=== PATIENT | male | born 1950 | race Caucasian/White ===

== ENCOUNTER → 2020-02-14 11:17 | Outpatient (BNVA) | payer OTHER, SELFPAY | PROVIDERS: Family Provider Nurse Practitioner; PCP Nurse Practitioner; Referring Provider Nurse Practitioner; Visit Provider Specialist | DX: G35 Multiple sclerosis (principal); F43.10 Post-traumatic stress disorder, unspecified; R56.9 Unspecified convulsions | CPT/HCPCS: 99204 ==

== ENCOUNTER 2020-12-25 07:41 | Outpatient (CLI) | payer OTHER, SELFPAY ==
--- NOTE | 2020-12-25 08:00 | MR_ITS ---
WS: [id number] MRI BRAIN WITH AND WITHOUT CONTRAST HISTORY: RULE OUT MS COMPARISON: CT 07/17/2018 TECHNIQUE: Multiplanar imaging performed through the brain with MultiHance 20 ml's IV. No acute infarct. No acute hemorrhage. There is extensive T2 and FLAIR signal within a pericallosal a nd callosal septal distribution bilaterally. Linear and ovoid signal abnormalities. Additional subcor tical white matter lesions in the frontal, temporal and parietal regions. Visualized brainstem and up per cervical spine are negative. No susceptibility artifacts or prior lacunar infarcts. Ventricles and extra-axial spaces are normal. Clivus and pituitary gland are normal. Visualized posterior fossa and brainstem are also normal. Postcontrast images are negative for masses or vascular malformations. Dural venous sinuses are normal. Paranasal sinuses: Well aerated with no significant disease. Mastoid air cells: Normal. Calvarium and scalp: Normal. MR/MR head wo/w con [id number] IMPRESSION: 1. No enhancing masses. 2. Moderate burden of T2 and FLAIR signal abnormalities in a pericallosal and callosal septal distribution. Typical distribution for demyelination such as mu ltiple sclerosis. None of these lesions enhance. 3. Moderate additional subcortical hyperintensities. These also could be relat ed to demyelination or chronic ischemic disease. 4. Mild atrophy.
== END 2020-12-25 07:42 | disposition home or self-care (01) ==
PROVIDERS: PCP Nurse Practitioner; Visit Provider Nurse Practitioner
DX: G35 Multiple sclerosis (principal); G31.9 Degenerative disease of nervous system, unspecified
CPT/HCPCS: 70553; A9579

== ENCOUNTER → 2021-01-08 10:14 | Outpatient (BNVA) | payer OTHER, SELFPAY | PROVIDERS: PCP Nurse Practitioner; Visit Provider Internal Medicine Cardiovascular Disease | DX: Z01.818 Encounter for other preprocedural examination (principal); Z20.822 Contact with and (suspected) exposure to COVID-19 | CPT/HCPCS: 80048; 85025; 85610; 87635 ==

== ENCOUNTER 2021-01-12 06:04 | Outpatient (CLI) | payer OTHER, SELFPAY ==
[2021-01-12 06:25] VITALS: BP 130/88; PULSE 84; RESP 18; TEMP 36.8; O2SAT 94; BMI 26.9
--- NOTE | 2021-01-12 07:24 | W.PM.OPSUD ---
Surgery/Procedure H&P Update DATE OF PROCEDURE: January 12, 2021 DATE H&P PERFORMED: 12/14/20 PLANNED PROCEDURE: Operation Date: 01/12/21 07:00 Proposed Procedures p Loop Recorder Insertion(Not Applicable) - Hawa Lin MD Nathaniel is here for elective ILR implant for episodes of unexplained syncope. No changes to H&P since his last visit.
--- NOTE | 2021-01-12 07:45 | P.PCN_ITS ---
Procedure Note: Date of procedure: 01/12/21 Pre-procedure diagnosis: Unexplained Syncope Post-procedure diagnosis: same Procedure: IMPLANTABLE ARTIFICIAL FLOWERS STARCHER (REVEAL LINQ) INSERTION NOTE: Location: [facility] Referring provider: Dr. Lin Indication: Syncope and bradycardia Brief history: 70 yo man with PMHx of multiple sclerosis, Lyme's disease in 01/2018 and history of hepatitis C and paroxysmal atrial fibrillation on digoxin and xarelto. He has had two episodes of syncope one in 03/2020 and another one in 07/2020. The one in March was preceded by symptom of dizziness tiredness weakness with witnessed episode of passing out without any seizure. Blood pressure at the time was in 80s and heart rate in 40s. He felt well prior to the episode. He did not go to the ER even though he felt like he was dying but used oxygen at home. He felt bad for a day or 2 but subsequently recovered. With the second episode in July, he was walking out in the yard and next thing he remembers that he was on the ground with right flank and mid back hurting. He called his and then with the help of walker he was able to get back in the house. He felt weak. He did not go to the ER but [facility]. X ray revealed that he had fractured at least one ribs. No MS or seizures. These episodes were different. I saw him last month and after discussion decision was made to place a ILR. Procedure: Patient was identified and procedure was explained to the patient in detail. Risks and benefits of the procedure were discussed with the patient. Informed consent was obtained. Patient was prepped and draped with STERILE drapes with all aseptic precautions. The patient was anesthetized with 8 mL of lidocaine. A small donn in the skin was made and REVEAL LINQ LNQ 11, serial number [id number] was implanted. Blood loss was less than 10 mL. The skin was secured with Steri-Strips and Tegaderm was applied on top. R-wave amplitude of 0.10 mV was detected. Sensitivity set at 0.035 mV with tachycardia set at 150 bpm and bradycardia detection set at 30 bpm. Programmed to detect longest A. fib. Patient tolerated the procedure pretty well. Op report anesthesia: Local Performing Provider: Hawa Lin Estimated blood loss (mL): 10 Complications: None Condition: stable Disposition: observation Coding Level of Care Code Acute Weatherization Director for g Fwd
[2021-01-12 08:18] VITALS: BP 126/88; PULSE 66; RESP 18; TEMP 36.7; O2SAT 94
--- NOTE | 2021-01-12 08:23 | PC.NURSE ---
Steri strips applied after pressure was held at the procedure site. No bleeding or swelling noted. The patient tolerated the procedure well.
== END 2021-01-12 08:40 | disposition home or self-care (01) ==
PROVIDERS: PCP Nurse Practitioner; Visit Provider Internal Medicine Cardiovascular Disease
PROC: (CPT 33285; principal; 2021-01-12 07:00)
DX: R55 Syncope and collapse (principal); R00.1 Bradycardia, unspecified; G35 Multiple sclerosis; Z86.19 Personal history of other infectious and parasitic diseases; I48.0 Paroxysmal atrial fibrillation; Z79.01 Long term (current) use of anticoagulants; Z99.81 Dependence on supplemental oxygen; J45.909 Unspecified asthma, uncomplicated; G47.30 Sleep apnea, unspecified
CPT/HCPCS: 33285; 36415; C1764; C1769; J0690

== ENCOUNTER → 2021-01-31 14:32 | Outpatient (BNVA) | payer OTHER, SELFPAY | PROVIDERS: PCP Nurse Practitioner; Visit Provider Specialist | DX: G35 Multiple sclerosis (principal); R56.9 Unspecified convulsions; F43.10 Post-traumatic stress disorder, unspecified | CPT/HCPCS: 99214; 99215 ==

== ENCOUNTER 2021-02-19 17:00 | Outpatient (CLI) | payer OTHER, SELFPAY ==
--- NOTE | 2021-02-19 17:30 | MR_ITS ---
WS: [email or web address] MRI CERVICAL SPINE NONCONTRAST HISTORY: G35 - Multiple sclerosis COMPARISON: None available. Technique: Multiplanar, multisequence noncontrast imaging of the cervical spine. Mild increase in the cervical lordosis. Moderate degenerative disc disease with osteophytes and disc bulging at several levels. Signal within the cervical cord is normal. Visualized posterior fossa is unremarkable. Craniocervical junction, C1 and C2 relationship, odontoid process and soft tissues are normal. C2-C3: Mild disc bulging and foraminal osteophytes. Very mild narrowing of the RIGHT foramen due to d isc osteophyte complex. C3-C4: Moderate annular disc bulging with a central disc protrusion contacting the ventral cervical c ord. Moderate-sized disc osteophyte complexes extending into the foramen and mild facet arthritis. Mi ld central and bilateral foraminal stenosis. C4-C5: Mild annular disc bulge with a central disc protrusion. Mild bilateral facet joint arthritis. Mild central and bilateral foraminal stenosis. C5-C6: Mild annular disc bulge. Shallow central disc protrusion. Disc osteophyte complexes extend int o the foramen. Mild central and bilateral foraminal stenosis. C6-C7: Diffuse annular disc bulge with a RIGHT paracentral disc protrusion. Moderate bilateral facet joint arthritis. Disc osteophyte complexes extend into the foramen causing mild foraminal narrowing. C7-T1: Normal. Paraspinal soft tissue are normal. MR/MR cervical spin wo con* [id number] IMPRESSION: 1. No signal abnormalities are noted within the cervical cord on this unenhanc ed cervical spine CT. 2. Moderate multilevel cervical spondylosis with multiple areas of mild-to-mod erate stenosis. 3. Mild RIGHT foraminal narrowing due to disc osteophyte complex at C2-3. 4. Central disc protrusion at C3-4 contacting the ventral cord resulting in mi ld central and bilateral foraminal stenosis. 5. Mild central and bilateral foraminal stenosis at C4-5 and C5-6. 6. Small RIGHT paracentral disc protrusion at C6-7 with moderate bilateral fac et arthritis. Mild bilateral foraminal stenosis.
== END 2021-02-19 17:01 | disposition home or self-care (01) ==
LOC: RADSHAW 17:06
PROVIDERS: PCP Nurse Practitioner; Visit Provider Specialist
DX: G35 Multiple sclerosis (principal)
CPT/HCPCS: 72141

== ENCOUNTER → 2021-02-21 08:43 | Outpatient (BNVA) | payer OTHER, SELFPAY | PROVIDERS: PCP Nurse Practitioner; Referring Provider Specialist; Visit Provider Specialist | DX: R56.9 Unspecified convulsions (principal); R55 Syncope and collapse | CPT/HCPCS: 95816 ==

== ENCOUNTER → 2021-07-23 10:25 | Outpatient (BNVA) | payer OTHER, SELFPAY | PROVIDERS: PCP Nurse Practitioner; Visit Provider Internal Medicine Cardiovascular Disease | DX: I45.19 Other right bundle-branch block (principal); I44.4 Left anterior fascicular block | CPT/HCPCS: 93005; 99999 ==

== ENCOUNTER → 2021-09-19 12:59 | Outpatient (BNVA) | payer OTHER, SELFPAY | PROVIDERS: PCP Nurse Practitioner; Visit Provider Specialist | DX: R56.9 Unspecified convulsions (principal); G35 Multiple sclerosis; M48.02 Spinal stenosis, cervical region; M54.12 Radiculopathy, cervical region; F43.10 Post-traumatic stress disorder, unspecified; I48.91 Unspecified atrial fibrillation; Z87.891 Personal history of nicotine dependence | CPT/HCPCS: 99214; 99215 ==

== ENCOUNTER → 2021-10-18 14:24 | Outpatient (BNVA) | payer OTHER, SELFPAY | PROVIDERS: PCP Nurse Practitioner; Visit Provider Internal Medicine Cardiovascular Disease | DX: Z45.09 Encounter for adjustment and management of other cardiac device (principal) | CPT/HCPCS: 93298 ==

== ENCOUNTER 2021-11-06 15:09 | Outpatient (CLI) | payer OTHER, SELFPAY ==
--- NOTE | 2021-11-06 15:15 | MR_ITS ---
WS: [email or web address] MRI CERVICAL SPINE NONCONTRAST TECHNIQUE: Sagittal T1, T2 and STIR imaging. Axial T2, gradient, and fiesta imaging. CLINICAL INFORMATION: M54.12 - Radiculopathy, cervical region COMPARISON: MRI 2020 FINDINGS: Straightening of the upper cervical lordosis. Mild cervical curve. Moderate spondylitic changes cervi jesse spine similar to previous. C2-C3: Mild RIGHT and no significant LEFT foraminal narrowing. Moderate LEFT facet arthropathy. Spina l canal is patent. C3-C4: Disc osteophyte complex endplate ridging. Moderate LEFT greater than RIGHT bony foraminal narr owing. Moderate facet arthropathy. C4-C5: Slight anterolisthesis. Moderate facet arthropathy. Mild RIGHT greater than LEFT bony foramina l narrowing. Moderate facet arthropathy. C5-C6: Disc osteophyte complex with endplate ridging. Moderate RIGHT greater than LEFT bony foraminal narrowing. Mild central canal stenosis. Moderate facet arthropathy. C6-C7: Disc osteophyte complex with endplate ridging. Moderate LEFT and mild RIGHT bony foraminal dina rowing. Spinal canal is patent. C7-T1: Mild LEFT and no significant RIGHT foraminal narrowing. Spinal canal is patent. Slight anterol isthesis. 13 mm LEFT inferior pole thyroid nodule. Small vessel changes in the mili. IMPRESSION: Overall no significant changes since 02/19/21 1. Mild central canal stenosis due to disc small osteophyte protrusions C3-C4 C5-C6 and C6-C7 unchan ged from previous with slight contact of the cervical cord. 2. Multilevel moderate bony foraminal narrowing worse at LEFT C3-C4, RIGHT C5-C6 and LEFT C6-C7. 3. Moderate facet arthropathy LEFT C2-C3, LEFT C3-C4, bilateral C4-C5 and C5-C6 4. Cord signal is normal. 5. Small amount of edema in the LEFT C2-C3 facets likely degenerative.
== END 2021-11-06 15:10 | disposition home or self-care (01) ==
LOC: RAD 15:10
PROVIDERS: PCP Nurse Practitioner; Visit Provider Specialist
DX: M54.12 Radiculopathy, cervical region (principal)
CPT/HCPCS: 72141

== ENCOUNTER → 2021-11-07 09:09 | Outpatient (BNVA) | payer OTHER, SELFPAY | PROVIDERS: PCP Nurse Practitioner; Visit Provider Anesthesiology Pain Medicine | DX: M47.812 Spondylosis without myelopathy or radiculopathy, cervical region (principal); Z87.891 Personal history of nicotine dependence | CPT/HCPCS: 99205 ==

== ENCOUNTER → 2021-12-07 10:40 | Outpatient (BNVA) | payer OTHER, SELFPAY | PROVIDERS: PCP Nurse Practitioner; Visit Provider Internal Medicine Cardiovascular Disease | DX: R55 Syncope and collapse (principal); I48.91 Unspecified atrial fibrillation; R56.9 Unspecified convulsions | CPT/HCPCS: 99213; 99214 ==

== ENCOUNTER → 2022-03-27 14:42 | Outpatient (BNVA) | payer OTHER, SELFPAY | PROVIDERS: PCP Nurse Practitioner; Visit Provider Specialist | DX: G40.909 Epilepsy, unspecified, not intractable, without status epilepticus (principal); M54.12 Radiculopathy, cervical region; G35 Multiple sclerosis | CPT/HCPCS: 99213 ==

== ENCOUNTER → 2022-07-08 14:21 | Outpatient (BNVA) | payer OTHER, SELFPAY | PROVIDERS: PCP Nurse Practitioner; Visit Provider Nurse Practitioner Family | DX: I48.91 Unspecified atrial fibrillation (principal); R55 Syncope and collapse; Z79.01 Long term (current) use of anticoagulants; Z87.891 Personal history of nicotine dependence | CPT/HCPCS: 99214 ==

== ENCOUNTER → 2022-10-01 16:21 | Outpatient (BNVA) | payer OTHER, SELFPAY | PROVIDERS: PCP Nurse Practitioner; Visit Provider Internal Medicine Cardiovascular Disease | DX: Z45.09 Encounter for adjustment and management of other cardiac device (principal) | CPT/HCPCS: G2066 ==

== ENCOUNTER → 2022-12-04 14:48 | Outpatient (BNVA) | payer OTHER, SELFPAY | PROVIDERS: PCP Nurse Practitioner; Visit Provider Internal Medicine Cardiovascular Disease | DX: Z45.09 Encounter for adjustment and management of other cardiac device (principal) | CPT/HCPCS: G2066 ==

== ENCOUNTER 2022-12-19 11:36 | Outpatient (CLI) | payer OTHER, SELFPAY ==
--- NOTE | 2022-12-19 11:52 | CT_ITS ---
WS: [email or web address] CT LUMBAR SPINE TECHNIQUE: Noncontrast CT of the lumbar spine with coronal and sagittal reformatted images. CLINICAL INFORMATION: LOW BACK PAIN/XRAY SHOWED DISH COMPARISON: None. DLP: 441.[address] scans at [facility] use at least one of these dose optimization techniques: automated e xposure control; mA and/or kV adjustment per patient size (includes targeted exams where dose is matc hed to clinical indication); or iterative reconstruction. FINDINGS: Mild lumbar curve. No acute compression. Hypertrophic changes lumbar spine. Right adrenal gland is normal. Tiny left adrenal adenoma. Hypertrophic changes of the sacroiliac join ts. L1-L2: Mild facet arthropathy. L2-L3: Mild annular bulging. Slight effacement of the ventral thecal sac. Slight narrowing of the sub articular recess. Moderate facet arthropathy. Mild left foraminal narrowing. L3-L4: Mild disc bulging with slight effacement of the ventral thecal sac. Mild left foraminal narrow ing. Moderate facet arthropathy. L4-L5: Mild annular bulging. Narrowing of the left greater than right subarticular recess. Moderate f acet arthropathy. Mild central canal stenosis. Mild left foraminal narrowing. L5-S1: Mild annular bulging with slight effacement of the ventral thecal sac. Moderate facet arthropa thy. Spinal canal and foramen are patent. Visualized pelvic bony structures: Normal. Paravertebral soft tissues: Normal. IMPRESSION: 1. Mild lumbar curve with anterior hypertrophic changes. No acute compression fractures. 2. Mild central canal stenosis L4-5 with narrowing left greater than right subarticular recess. 3. Mild left L3-L4 and L4-L5 foraminal narrowing. 4. Moderate facet arthropathy L3-L5.
--- NOTE | 2022-12-19 11:52 | CT_ITS ---
WS: [email or web address] CT HEAD TECHNIQUE: Noncontrast CT of the head obtained from the skullbase to the vertex. CLINICAL INFORMATION: DEMENTIA COMPARISON: MRI [address] 2018 DLP: 1235.[address] scans at [facility] use at least one of these dose optimization techniques: automated e xposure control; mA and/or kV adjustment per patient size (includes targeted exams where dose is matc hed to clinical indication); or iterative reconstruction. FINDINGS: No evidence of intracranial hemorrhage or mass effect. Ventricular system and basal cisterns are ogden nt. Moderate small vessel changes with moderate parenchymal volume loss. No extra-axial fluid collect ions. No evidence of mass or mass effect. Intracranial vascular calcification. Paranasal sinuses and mastoid air cells are well aerated. .Normal visualized soft tissues. Normal pos terior nasopharynx and parapharyngeal fat. IMPRESSION: 1. No evidence of intracranial hemorrhage or mass effect 2. Moderate small vessel changes with moderate parenchymal volume loss similar to the MRI in 2020. 3. No acute intracranial findings.
== END 2022-12-19 11:37 | disposition home or self-care (01) ==
LOC: RAD 11:37
PROVIDERS: PCP Nurse Practitioner; Visit Provider Nurse Practitioner
DX: M48.061 Spinal stenosis, lumbar region without neurogenic claudication (principal); M47.817 Spondylosis without myelopathy or radiculopathy, lumbosacral region; F03.90 Unspecified dementia, unspecified severity, without behavioral disturbance, psychotic disturbance, mood disturbance, and anxiety
CPT/HCPCS: 70450; 72131

== ENCOUNTER 2022-12-31 08:20 | Outpatient (CLI) | payer OTHER, SELFPAY ==
--- NOTE | 2022-12-31 09:08 | US_ITS ---
WS: [email or web address] ULTRASOUND ABDOMEN LIMITED CLINICAL INFORMATION: RUQ US ELEVATED LIVER ENZYMES COMPARISON: None. FINDINGS: Liver Size: Enlarged Craniocaudal length: 18.7 cm. Echogenicity: Coarse Surface nodularity: None. Mass (size and location): None. Bile ducts Intrahepatic ducts: Normal. Common bile duct diameter: 0.4 cm. Gallbladder Cholecystectomy Pancreas Normal as visualized. Right kidney: Normal. Hydronephrosis: None. Size: 11.5 cm x 5.0 cm x 4.7 cm. Abdominal aorta and IVC Visualized portions are normal. Ascites: None. IMPRESSION: 1. Prior cholecystectomy. 2. Hepatomegaly measuring 18.7 cm with coarse hepatic echotexture can be seen with fatty infiltratio n or hepatocellular disease. Correlation with liver function tests. 3. Normal common bile duct. 4. No hydronephrosis in the RIGHT kidney.
== END 2022-12-31 08:21 | disposition home or self-care (01) ==
LOC: RAD 08:21
PROVIDERS: PCP Nurse Practitioner; Visit Provider Nurse Practitioner
DX: R10.11 Right upper quadrant pain (principal); R74.8 Abnormal levels of other serum enzymes; R16.0 Hepatomegaly, not elsewhere classified; Z90.49 Acquired absence of other specified parts of digestive tract
CPT/HCPCS: 76705

== ENCOUNTER → 2023-01-06 15:10 | Outpatient (BNVA) | payer OTHER, SELFPAY | PROVIDERS: PCP Nurse Practitioner; Visit Provider Internal Medicine Cardiovascular Disease | DX: R55 Syncope and collapse (principal); I48.91 Unspecified atrial fibrillation; R56.9 Unspecified convulsions; Z87.891 Personal history of nicotine dependence; G40.409 Other generalized epilepsy and epileptic syndromes, not intractable, without status epilepticus | CPT/HCPCS: 99214 ==

== ENCOUNTER → 2023-01-23 09:13 | Outpatient (BNVA) | payer OTHER, SELFPAY | PROVIDERS: PCP Nurse Practitioner; Visit Provider Nurse Practitioner Family | DX: L57.0 Actinic keratosis (principal); L57.8 Other skin changes due to chronic exposure to nonionizing radiation; L82.1 Other seborrheic keratosis; D22.5 Melanocytic nevi of trunk; L81.4 Other melanin hyperpigmentation | CPT/HCPCS: 17004; 99213 ==

== ENCOUNTER → 2023-01-29 12:49 | Outpatient (BNVA) | payer OTHER, SELFPAY | PROVIDERS: PCP Nurse Practitioner; Visit Provider Internal Medicine Cardiovascular Disease | DX: Z45.09 Encounter for adjustment and management of other cardiac device (principal) | CPT/HCPCS: G2066 ==

== ENCOUNTER → 2023-08-06 23:50 | Outpatient (BNVA) | payer OTHER, SELFPAY | PROVIDERS: PCP Nurse Practitioner; Visit Provider Internal Medicine | DX: Z45.09 Encounter for adjustment and management of other cardiac device (principal) | CPT/HCPCS: 93298 ==

== ENCOUNTER → 2023-09-11 14:26 | Outpatient (BNVA) | payer OTHER, SELFPAY | PROVIDERS: PCP Nurse Practitioner; Visit Provider Nurse Practitioner Family | DX: D48.5 Neoplasm of uncertain behavior of skin (principal); L57.0 Actinic keratosis; L21.8 Other seborrheic dermatitis; L72.11 Pilar cyst; L85.3 Xerosis cutis; D18.01 Hemangioma of skin and subcutaneous tissue; L81.4 Other melanin hyperpigmentation; L98.8 Other specified disorders of the skin and subcutaneous tissue; L91.8 Other hypertrophic disorders of the skin | CPT/HCPCS: 11102; 17004; 99213 ==

== ENCOUNTER → 2023-09-25 14:31 | Outpatient (BNVA) | payer OTHER, SELFPAY | PROVIDERS: PCP Nurse Practitioner; Visit Provider Internal Medicine | DX: R55 Syncope and collapse (principal); I48.91 Unspecified atrial fibrillation; G47.30 Sleep apnea, unspecified; R56.9 Unspecified convulsions; G35 Multiple sclerosis; Z87.891 Personal history of nicotine dependence | CPT/HCPCS: 99214 ==

== ENCOUNTER → 2023-10-15 09:45 | Outpatient (BNVA) | payer OTHER, SELFPAY | PROVIDERS: PCP Nurse Practitioner; Visit Provider Internal Medicine | DX: Z45.09 Encounter for adjustment and management of other cardiac device (principal) | CPT/HCPCS: 93298 ==

== ENCOUNTER → 2023-10-15 14:12 | Outpatient (BNVA) | payer OTHER, SELFPAY | PROVIDERS: PCP Nurse Practitioner; Visit Provider Dermatology | DX: D03.61 Melanoma in situ of right upper limb, including shoulder (principal) | CPT/HCPCS: 11603; 13121 ==

== ENCOUNTER → 2023-10-30 08:08 | Outpatient (BNVA) | payer OTHER, SELFPAY | PROVIDERS: PCP Nurse Practitioner; Visit Provider Nurse Practitioner Family | DX: D48.5 Neoplasm of uncertain behavior of skin (principal); L57.0 Actinic keratosis; L30.4 Erythema intertrigo; B35.3 Tinea pedis; B35.1 Tinea unguium; D18.01 Hemangioma of skin and subcutaneous tissue; L81.4 Other melanin hyperpigmentation; L98.8 Other specified disorders of the skin and subcutaneous tissue; Z86.006 Personal history of melanoma in-situ | CPT/HCPCS: 11102; 17000; 99214 ==

== ENCOUNTER → 2023-11-12 13:39 | Outpatient (BNVA) | payer OTHER, SELFPAY | PROVIDERS: PCP Nurse Practitioner; Visit Provider Specialist | DX: G30.9 Alzheimer's disease, unspecified (principal); F02.80 Dementia in other diseases classified elsewhere, unspecified severity, without behavioral disturbance, psychotic disturbance, mood disturbance, and anxiety; G35 Multiple sclerosis; R56.9 Unspecified convulsions; M54.12 Radiculopathy, cervical region; F43.10 Post-traumatic stress disorder, unspecified; I48.91 Unspecified atrial fibrillation | CPT/HCPCS: 96116; 99214; 99215 ==

== ENCOUNTER → 2023-11-25 10:59 | Outpatient (BNVA) | payer OTHER, SELFPAY | PROVIDERS: PCP Nurse Practitioner; Visit Provider Internal Medicine | DX: Z45.09 Encounter for adjustment and management of other cardiac device (principal) | CPT/HCPCS: 93298 ==

== ENCOUNTER → 2023-11-27 11:07 | Outpatient (BNVA) | payer OTHER, SELFPAY | PROVIDERS: PCP Nurse Practitioner; Visit Provider Podiatrist Foot & Ankle Surgery | DX: B35.1 Tinea unguium (principal); I73.9 Peripheral vascular disease, unspecified; G60.9 Hereditary and idiopathic neuropathy, unspecified | CPT/HCPCS: 11721; 99203 ==

== ENCOUNTER → 2024-01-28 10:11 | Outpatient (BNVA) | payer OTHER, SELFPAY | PROVIDERS: PCP Nurse Practitioner; Visit Provider Internal Medicine | DX: Z45.09 Encounter for adjustment and management of other cardiac device (principal) | CPT/HCPCS: 93298 ==

== ENCOUNTER → 2024-02-17 13:51 | Outpatient (BNVA) | payer OTHER, SELFPAY | PROVIDERS: PCP Nurse Practitioner; Visit Provider Internal Medicine | DX: I48.91 Unspecified atrial fibrillation (principal); Z79.01 Long term (current) use of anticoagulants; R55 Syncope and collapse; G47.30 Sleep apnea, unspecified; R56.9 Unspecified convulsions; G35 Multiple sclerosis; Z87.891 Personal history of nicotine dependence | CPT/HCPCS: 99214 ==

== ENCOUNTER → 2024-03-04 14:51 | Outpatient (BNVA) | payer OTHER, SELFPAY | PROVIDERS: PCP Nurse Practitioner; Visit Provider Podiatrist Foot & Ankle Surgery | DX: B35.1 Tinea unguium (principal); I73.9 Peripheral vascular disease, unspecified; G60.9 Hereditary and idiopathic neuropathy, unspecified | CPT/HCPCS: 11721 ==

== ENCOUNTER → 2024-03-25 10:42 | Outpatient (BNVA) | payer OTHER, SELFPAY | PROVIDERS: PCP Nurse Practitioner; Visit Provider Internal Medicine Cardiovascular Disease | DX: Z45.09 Encounter for adjustment and management of other cardiac device (principal) | CPT/HCPCS: 93298 ==

== ENCOUNTER 2024-04-01 07:15 | Outpatient (CLI) | payer OTHER, SELFPAY ==
--- NOTE | 2024-04-01 | ECG_ITS ---
[facility]24[facility] Pat Name: Nathaniel Cantu Department: Room: Gender: Male Group Therapist: : 1950 Requested By: Bradley Mcdowell Order Number: [id number] Lisa MD: Bradley Mcdowell M.D. Interpretive Statements LEXISCAN SESTAMIBI STRESS TEST Procedure: At the baseline, the blood pressure was 145/88 mmHg with a heart rate of 81 bpm. The electrocardiogram showed normal sinus rhythm, right bundle branch block, with normal ST and T's. The Lexiscan was infused over a period of 20 seconds. A total of 0.4 mg of Lexiscan was infused. The stress phase was continued for a total of 5 minutes. Heart rate was at the end of stress phase was 88 bpm and a blood pressure of 118/94 mmHg. The EKG at the peak infusion revealed normal sinus rhythm with no significant ST-T wave changes. Sestamibi was injected 20 seconds after the Lexiscan infusion. Blood pressure at the end of recovery phase was 130/94 mmHg with a heart rate of 85 bpm. Conclusion: 1. Normal EKG response to Lexiscan infusion 2. No Lexiscan induced chest pain or cardiac arrhythmia. 3. Normal blood pressure and heart rate response. 4. Sestamibi/sestamibi perfusion scan pending; see separate report. Electronically Signed On 04-11-2024 19:35:17 MANAGER GOLF by Bradley Mcdowell M.D. [email or web address]
[2024-04-01 07:55] VITALS: BMI 23.6
--- NOTE | 2024-04-01 07:57 | NMCV_ITS ---
NM jamie perf SPECT r/s* [id number] Nathaniel Cantu Age: 74 Gender: M : 1950 Exam Date: 04/01/2024 07:57 Ordering Phys: Bradley Mcdowell M.D ([email or web address]) Technologist: DIXON Martinez Exam Location: [facility] Indications: CP STRESS TEST [facility] IMAGE PROTOCOL Rest/Stress 1 Lexiscan Day Radiopharmaceutical Dose (mCi) Administration Site Administered by Rest: Tc-99m 11 IV DIXON Martinez Sestamibi Stress:Tc-99m 32.6 IV Reyna Keane, EDUCATION TECHNICIAN Sestamibi Rest: 01-Apr-2024 60 Discovery 630 Stress: 01-Apr-2024 30 Discovery 630 0.4mg Lexiscan. Supine position only as patient was unable to lay prone. SPECT RESULTS Technical Quality: Good Raw Data Analysis: Normal Image Corrections: No attenuation or motion correction applied Summed Stress Score: 0 Summed Rest Score: 0 Summed Difference Score: 0 PERFUSION FINDINGS SPECT images demonstrate homogeneous tracer distribution throughout the myocardium. FUNCTIONAL RESULTS (calculated via Gated SPECT) Stress Image LV EF (%): 64 Stress EDV (mL):83 TID: 1 Stress ESV (mL):30 FUNCTIONAL FINDINGS: There is normal left ventricular systolic function. IMPRESSIONS 1. Normal myocardial perfusion imaging with no evidence of ischemia. 2. LV systolic function is normal. Bradley Mcdowell MD (Electronically Signed) Final Date: 01 April 2024 11:56 S
[2024-04-01] MEDS: regadenoson 0.4 Mg/5 ml Syringe IVP (09:06)
[2024-04-01 12:02] VITALS: BP 130/94; PULSE 85
== END 2024-04-01 07:16 | disposition home or self-care (01) ==
PROVIDERS: PCP Nurse Practitioner; Visit Provider Internal Medicine
DX: R07.9 Chest pain, unspecified (principal); R06.02 Shortness of breath
CPT/HCPCS: 36415; 78452; 93017; 96374; A9500; J2785

== ENCOUNTER → 2024-04-05 13:44 | Outpatient (BNVA) | payer OTHER, SELFPAY | PROVIDERS: PCP Nurse Practitioner; Visit Provider Nurse Practitioner Family | DX: L21.8 Other seborrheic dermatitis (principal); L30.4 Erythema intertrigo; B35.1 Tinea unguium; L81.4 Other melanin hyperpigmentation; D22.5 Melanocytic nevi of trunk; Z86.006 Personal history of melanoma in-situ; L57.0 Actinic keratosis | CPT/HCPCS: 17000; 99214 ==

== ENCOUNTER → 2024-04-22 13:17 | Outpatient (BNVA) | payer OTHER, SELFPAY | PROVIDERS: PCP Nurse Practitioner; Visit Provider Specialist | DX: G30.9 Alzheimer's disease, unspecified (principal); F02.80 Dementia in other diseases classified elsewhere, unspecified severity, without behavioral disturbance, psychotic disturbance, mood disturbance, and anxiety; G35 Multiple sclerosis; R56.9 Unspecified convulsions; M54.12 Radiculopathy, cervical region; F43.10 Post-traumatic stress disorder, unspecified; I48.91 Unspecified atrial fibrillation | CPT/HCPCS: 99214 ==

== ENCOUNTER → 2024-05-04 10:33 | Outpatient (BNVA) | payer OTHER, SELFPAY | PROVIDERS: PCP Nurse Practitioner; Visit Provider Internal Medicine | DX: Z45.09 Encounter for adjustment and management of other cardiac device (principal) | CPT/HCPCS: 93298 ==

== ENCOUNTER 2024-05-14 09:02 | Outpatient (CLI) | payer OTHER, SELFPAY ==
--- NOTE | 2024-05-14 09:14 | US_ITS ---
WS: [email or web address] RIGHT UPPER QUADRANT ULTRASOUND HISTORY: ELEVATED LIVER ENZYMES COMPARISON: 12/31/2022 Liver: 19.0 cm in length. Mildly enlarged liver similar to the prior study. Coarse echotexture throug hout. No surface nodularity. Portal Vein: Normal hepatopetal flow with monophasic waveform. Gallbladder: Prior cholecystectomy. CBD: 0.5 cm Pancreas: Normal size and echogenicity. Right kidney: 10.9 cm in length. Normal size and echogenicity. No hydronephrosis or mass. Aorta and IVC: Unremarkable abdominal aorta and IVC. No ascites. US/US abdomen limited [id number] IMPRESSION: 1. Status post cholecystectomy. 2. Mild hepatomegaly and mild coarse echotexture. Correlate for hepatocellular disease or mild hepatic steatosis.
== END 2024-05-14 09:03 | disposition home or self-care (01) ==
LOC: RAD 09:04
PROVIDERS: PCP Nurse Practitioner; Visit Provider Nurse Practitioner
DX: R74.01 Elevation of levels of liver transaminase levels (principal); Z90.49 Acquired absence of other specified parts of digestive tract
CPT/HCPCS: 76705

== ENCOUNTER 2024-06-10 13:04 | Outpatient (CLI) | payer OTHER, SELFPAY ==
--- NOTE | 2024-06-10 13:08 | CT_ITS ---
WS: [email or web address] CT ABDOMEN WITHOUT CONTRAST HISTORY: COARSE LIVER WITH ELEVATED ENZYMES Contiguous single phase 5 mm axial imaging performed to the abdomen. Oral contrast has not been provi ded. Coronal and sagittal reformats are submitted. All CT scans at [facility] use at least on e of these dose optimization techniques: automated exposure control; mA and/or kV adjustment per dennis ent size (includes targeted exams where dose is matched to clinical indication); or iterative reconst ruction. IV CONTRAST: None Oral contrast: No DLP: 257.89 mGy.cm COMPARISON: Ultrasound 05/14/2024 Lower thorax: Lung bases are clear. Heart is normal size. Small hiatal hernia. Liver/biliary system: Normal size liver with a granuloma. On this unenhanced exam no obvious abnormal ities are identified. Hounsfield units are normal. Gallbladder: Status post cholecystectomy. Pancreas: Normal size pancreas and pancreatic duct. No adjacent inflammation. Spleen: Normal size spleen. No mass or infarct. Adrenal glands: Normal. Right kidney: Normal. Left kidney: Nonobstructing 2 mm calcification lower pole. Minimal perinephric stranding. Aorta: Normal. Lymphadenopathy: None. Free fluid: None. GI tract: Stomach is markedly distended with food products. No small bowel obstruction. Dense inspiss ated fecal material throughout the transverse colon and through the flexures. The entire colon was no t included as only the abdomen CT is been obtained. Abdominal wall: Unremarkable abdominal wall. No hernia. Visualized osseous structures: Osteopenia. Bridging osteophytes in the thoracolumbar junction. Mild a nterior wedging of T12. CT/CT abdomen wo con [id number] IMPRESSION: 1. Normal size liver. 2. Prior cholecystectomy. 3. Markedly distended stomach from a recent meal. There is also marked constip ation of the transverse colon. 4. No ascites.
== END 2024-06-10 13:05 | disposition home or self-care (01) ==
PROVIDERS: PCP Nurse Practitioner; Visit Provider Nurse Practitioner
DX: Z01.89 Encounter for other specified special examinations (principal); Z90.49 Acquired absence of other specified parts of digestive tract; K59.00 Constipation, unspecified; K44.9 Diaphragmatic hernia without obstruction or gangrene; K75.3 Granulomatous hepatitis, not elsewhere classified; N28.89 Other specified disorders of kidney and ureter; R93.422 Abnormal radiologic findings on diagnostic imaging of left kidney; M85.80 Other specified disorders of bone density and structure, unspecified site; M25.78 Osteophyte, vertebrae; M48.54XA Collapsed vertebra, not elsewhere classified, thoracic region, initial encounter for fracture; X58.XXXA Exposure to other specified factors, initial encounter
CPT/HCPCS: 74150

== ENCOUNTER → 2024-06-16 08:56 | Outpatient (BNVA) | payer OTHER, SELFPAY | PROVIDERS: PCP Nurse Practitioner; Visit Provider Internal Medicine | DX: Z45.09 Encounter for adjustment and management of other cardiac device (principal) | CPT/HCPCS: 93298 ==

== ENCOUNTER → 2024-06-25 11:12 | Outpatient (BNVA) | payer OTHER, SELFPAY | PROVIDERS: PCP Nurse Practitioner; Visit Provider Nurse Practitioner Family | DX: I48.91 Unspecified atrial fibrillation (principal) | CPT/HCPCS: 36415; 80162; 99214 ==

== ENCOUNTER → 2024-06-28 15:03 | Outpatient (BNVA) | payer OTHER, SELFPAY | PROVIDERS: PCP Nurse Practitioner; Visit Provider Podiatrist Foot & Ankle Surgery | DX: I73.9 Peripheral vascular disease, unspecified (principal); B35.1 Tinea unguium; G60.9 Hereditary and idiopathic neuropathy, unspecified | CPT/HCPCS: 11721 ==

== ENCOUNTER → 2024-07-21 08:46 | Outpatient (BNVA) | payer OTHER, SELFPAY | PROVIDERS: PCP Nurse Practitioner; Visit Provider Internal Medicine | DX: Z45.09 Encounter for adjustment and management of other cardiac device (principal) | CPT/HCPCS: 93298 ==

== ENCOUNTER → 2024-07-29 13:28 | Outpatient (BNVA) | payer OTHER, SELFPAY | PROVIDERS: PCP Nurse Practitioner; Visit Provider Internal Medicine | DX: R55 Syncope and collapse (principal); I48.91 Unspecified atrial fibrillation; G47.30 Sleep apnea, unspecified; R56.9 Unspecified convulsions; G35 Multiple sclerosis | CPT/HCPCS: 99214 ==

== ENCOUNTER → 2024-08-25 11:29 | Outpatient (BNVA) | payer OTHER, SELFPAY | PROVIDERS: PCP Nurse Practitioner; Visit Provider Internal Medicine Cardiovascular Disease | DX: Z45.09 Encounter for adjustment and management of other cardiac device (principal) | CPT/HCPCS: 93298; 99214 ==

== ENCOUNTER → 2024-08-26 14:41 | Outpatient (BNVA) | payer OTHER, SELFPAY | PROVIDERS: PCP Nurse Practitioner; Visit Provider Podiatrist Foot & Ankle Surgery | DX: I73.9 Peripheral vascular disease, unspecified (principal); B35.1 Tinea unguium; G60.9 Hereditary and idiopathic neuropathy, unspecified | CPT/HCPCS: 11721 ==

== ENCOUNTER → 2024-10-07 12:58 | Outpatient (BNVA) | payer OTHER, SELFPAY | PROVIDERS: PCP Nurse Practitioner; Visit Provider Nurse Practitioner Family | DX: R59.0 Localized enlarged lymph nodes (principal); S80.861A Insect bite (nonvenomous), right lower leg, initial encounter; S80.862A Insect bite (nonvenomous), left lower leg, initial encounter; S70.362A Insect bite (nonvenomous), left thigh, initial encounter; S70.361A Insect bite (nonvenomous), right thigh, initial encounter; D48.5 Neoplasm of uncertain behavior of skin; F42.4 Excoriation (skin-picking) disorder; L98.8 Other specified disorders of the skin and subcutaneous tissue; D18.01 Hemangioma of skin and subcutaneous tissue; L81.4 Other melanin hyperpigmentation; Z08 Encounter for follow-up examination after completed treatment for malignant neoplasm; Z86.006 Personal history of melanoma in-situ; X58.XXXA Exposure to other specified factors, initial encounter; L57.0 Actinic keratosis | CPT/HCPCS: 10120; 17000; 99213 ==

== ENCOUNTER → 2024-10-26 15:29 | Outpatient (BNVA) | payer OTHER, SELFPAY | PROVIDERS: PCP Nurse Practitioner; Visit Provider Specialist | DX: G30.9 Alzheimer's disease, unspecified (principal); F02.80 Dementia in other diseases classified elsewhere, unspecified severity, without behavioral disturbance, psychotic disturbance, mood disturbance, and anxiety; G35 Multiple sclerosis; R56.9 Unspecified convulsions; M54.12 Radiculopathy, cervical region; F43.10 Post-traumatic stress disorder, unspecified; I48.91 Unspecified atrial fibrillation | CPT/HCPCS: 99214 ==

== ENCOUNTER → 2024-10-28 15:08 | Outpatient (BNVA) | payer OTHER, SELFPAY | PROVIDERS: PCP Nurse Practitioner; Visit Provider Podiatrist Foot & Ankle Surgery | DX: I73.9 Peripheral vascular disease, unspecified (principal); B35.1 Tinea unguium; G60.9 Hereditary and idiopathic neuropathy, unspecified | CPT/HCPCS: 11721 ==

== ENCOUNTER → 2024-11-18 13:49 | Outpatient (BNVA) | payer OTHER, SELFPAY | PROVIDERS: PCP Nurse Practitioner; Visit Provider Nurse Practitioner Family | DX: R59.0 Localized enlarged lymph nodes (principal); B35.1 Tinea unguium; Z08 Encounter for follow-up examination after completed treatment for malignant neoplasm; Z86.006 Personal history of melanoma in-situ; L82.0 Inflamed seborrheic keratosis; L29.89 Other pruritus; R20.9 Unspecified disturbances of skin sensation; R20.8 Other disturbances of skin sensation; Z78.9 Other specified health status; R58 Hemorrhage, not elsewhere classified; L53.8 Other specified erythematous conditions | CPT/HCPCS: 17110; 99213 ==

== ENCOUNTER → 2024-11-25 08:14 | Outpatient (BNVA) | payer OTHER, SELFPAY | PROVIDERS: PCP Nurse Practitioner; Visit Provider Internal Medicine | DX: Z45.09 Encounter for adjustment and management of other cardiac device (principal) | CPT/HCPCS: 93298 ==

== ENCOUNTER → 2025-01-05 14:51 | Outpatient (BNVA) | payer OTHER, SELFPAY | PROVIDERS: PCP Nurse Practitioner; Visit Provider Podiatrist Foot & Ankle Surgery | DX: I73.9 Peripheral vascular disease, unspecified (principal); B35.1 Tinea unguium; L84 Corns and callosities; G60.9 Hereditary and idiopathic neuropathy, unspecified | CPT/HCPCS: 11056; 11721 ==

== ENCOUNTER → 2025-02-03 13:55 | Outpatient (BNVA) | payer OTHER, SELFPAY | PROVIDERS: PCP Nurse Practitioner; Visit Provider Internal Medicine | DX: I48.91 Unspecified atrial fibrillation (principal); Z79.01 Long term (current) use of anticoagulants; Z79.899 Other long term (current) drug therapy; R06.02 Shortness of breath; R07.9 Chest pain, unspecified | CPT/HCPCS: 36415; 80048; 80162; 99214 ==

== ENCOUNTER → 2025-02-23 14:57 | Outpatient (BNVA) | payer OTHER, SELFPAY | PROVIDERS: PCP Nurse Practitioner; Visit Provider Internal Medicine | DX: Z01.818 Encounter for other preprocedural examination (principal); I48.91 Unspecified atrial fibrillation; R07.9 Chest pain, unspecified | CPT/HCPCS: 99214 ==

== ENCOUNTER 2025-02-25 07:01 | Outpatient (CLI) | payer OTHER, SELFPAY ==
--- NOTE | 2025-02-25 07:15 | USCV_ITS ---
Nathaniel Cantu Age: 75 Gender: M : 1950 Exam Date: 02/25/2025 07:13 Ordering Phys: Bradley Mcdowell M.D ([email or web address]) Technologist: DOLORES [place] [facility] [place]: CP, SoB BP: 122 / 74 HR: 65 Rhythm: Sinus Technical Quality: Adequate MEASUREMENTS (Male / Female) Normal Values 2D ECHO LV Diastolic Diameter PLAX 4.7 cm 4.2 - 5.9 / 3.9 - 5.3 cm IVS Diastolic Thickness 1.0 cm 0.6 - 1.0 / 0.6 - 0.9 cm IVS Systolic Thickness 1.4 cm LVPW Diastolic Thickness 1.4 cm 0.6 - 1.0 / 0.6 - 0.9 cm LVPW Systolic Thickness 1.6 cm LVOT Diameter 2.1 cm LV Ejection Fraction 2D Teich 51.5 % LV Ejection Fraction MOD 4C 54.2 % LV Ejection Fraction MOD 2C 59.1 % LV Ejection Fraction 2C AL 62.1 % LA Diameter 3.4 cm RA Systolic Volume 4C AL 42.5 ml RA Systolic Volume 4C MOD 37.1 ml LA Sys Volume AL 35.2 cm cubed LA Sys Volume Index AL 17.2 cm cubed/m squared Aorta at Sinotubular Diameter 3.0 cm IVC Diameter 1.7 cm M-MODE LA Ao Ratio MM 1.1 AV Cusp Separation MM 1.5 cm DOPPLER AV Peak Velocity 116.0 cm/s LVOT Peak Velocity 97.0 cm/s AV Area Cont Eq vti 2.8 cm squared AV Area Cont Eq pk 2.8 cm squared MV Peak Velocity 80.0 cm/s MV Area PHT 4.7 cm squared Mitral E to A Ratio 0.5 TV Peak Velocity 142.5 cm/s TR Peak Velocity 197.0 cm/s TR Peak Gradient 15.5 mmHg TV Peak E Velocity 82.0 cm/s FINDINGS Left Ventricle Normal left ventricular size, systolic function and wall thickness, with no regional wall motion abnormalities. Left ventricular ejection fraction is estimated at 60 %. Grade I/IV diastolic dysfunction (abnormal relaxation filling pattern), normal to mildly elevated filling pressures. Right Ventricle Normal right ventricular size and systolic function. Right Atrium Normal right atrial size. Left Atrium Normal left atrial size. IA Septum Normal appearance of the interatrial septum. Mitral Valve Normal mitral valve structure. No mitral valve stenosis or regurgitation. Aortic Valve Moderate aortic valve calcification. No aortic valve stenosis. Trace aortic valve regurgitation. Tricuspid Valve Normal tricuspid valve structure. No tricuspid valve stenosis or regurgitation. Normal pulmonary pressure. Pulmonic Valve Normal pulmonic valve structure. No pulmonic valve stenosis or regurgitation. Pericardium No pericardial effusion. Aorta Normal diameter of the aortic root and ascending thoracic aorta. IVC Normal IVC diameter. CONCLUSIONS Normal left ventricular size, systolic function and wall thickness, with no regional wall motion abnormalities. Left ventricular ejection fraction is estimated at 60 %. Grade I/IV diastolic dysfunction (abnormal relaxation filling pattern), normal to mildly elevated filling pressures. No significant valvular abnormalities. There is no pericardial effusion. Right atrial pressure is around 5 mm of mercury. Sandra Earl MD (Electronically Signed) Final Date: 06 March 2025 17:56 S
== END 2025-02-25 07:02 | disposition home or self-care (01) ==
LOC: RAD 07:02
PROVIDERS: PCP Nurse Practitioner; Visit Provider Internal Medicine
DX: R07.9 Chest pain, unspecified (principal); R06.02 Shortness of breath; R93.1 Abnormal findings on diagnostic imaging of heart and coronary circulation; I35.8 Other nonrheumatic aortic valve disorders
CPT/HCPCS: 93306

== ENCOUNTER 2025-02-28 09:04 | Outpatient (CLI) | payer OTHER, SELFPAY ==
--- NOTE | 2025-02-28 | ECG_ITS ---
[facility] Test Date: 2025-02-28 Pat Name: Nathaniel Cantu Department: Room: Gender: Male Feeder Tender: : 1950 Requested By: Bradley Mcdowell Order Number: [id number] Gonzalez MD: Kavon Maxwell M.D. Interpretive Statements procedure: A total of 0.4 mg of Lexiscan was infused over 20 seconds. The stress phase was continued for a total of 5 minutes. Sestamibi was injected 20 seconds after the Lexiscan infusion. Findings: The patient's resting blood pressure was 133/93 with a heart rate of 71. Blood pressure decreased to 105/70 and the heart rate increased to 101 bpm. The patient's blood pressure at the end of recovery was 127/82 with a heart rate of 87 bpm. The patient's baseline EKG showed normal sinus rhythm with right bundle branch block and left anterior fascicular block. No ST???T wave changes after Lexiscan injection. . Conclusion: 1. Normal EKG response to Lexiscan infusion 2. No Lexiscan induced chest pain or cardiac arrhythmia. 3. Normal blood pressure and heart rate response. 4. Nuclear myocardial perfusion scan pending; see separate report. Electronically Signed On 02-28-2025 23:00:25 CDT by Kavon Maxwell M.D. [email or web address] [id number]
[2025-02-28 09:57] VITALS: BMI 25.1
--- NOTE | 2025-02-28 10:00 | NMCV_ITS ---
NM jamie perf SPECT r/s* [id number] Nathaniel Cantu Age: 75 Gender: M : 1950 Exam Date: 02/28/2025 10:23 Ordering Phys: Bradley Mcdowell M.D ([email or web address]) Technologist: DIXON Martinez Exam Location: [facility] Indications: cp STRESS TEST Please see separate stress test report in [facility] for full findings IMAGE PROTOCOL Rest/Stress 1 Lexiscan Day Radiopharmaceutical Dose (mCi) Administration Site Administered by Rest: Tc-99m 10.8 IV DIXON Martinez Sestamibi Stress:Tc-99m 33 IV DIXON Henriquez Sestamibi Rest: 28-Feb-2025 60 Discovery 630 Stress: 28-Feb-2025 30 Discovery 630 0.4mg Lexiscan. Supine position only as patient was unable to lay prone. SPECT RESULTS Technical Quality: Good Raw Data Analysis: Normal Image Corrections: No attenuation or motion correction applied Summed Stress Score: 0 Summed Rest Score: 2 Summed Difference Score: 0 PERFUSION FINDINGS SPECT images demonstrate homogeneous tracer distribution throughout the myocardium. FUNCTIONAL RESULTS (calculated via Gated SPECT) Stress Image LV EF (%): 61 Stress EDV (mL):90 TID: 1.04 Stress ESV (mL):35 FUNCTIONAL FINDINGS: There is normal left ventricular systolic function. IMPRESSIONS Myocardial perfusion imaging is normal. There is normal left ventricular cavity size and systolic function, EF 61%. Kavon Maxwell MD, FACC (Electronically Signed) Final Date: 28 February 2025 23:17 S
[2025-02-28 11:24] VITALS: BP 127/82; PULSE 87
== END 2025-02-28 09:05 | disposition home or self-care (01) ==
LOC: CDL 09:05
PROVIDERS: PCP Nurse Practitioner; Visit Provider Internal Medicine
DX: R07.9 Chest pain, unspecified (principal); R06.02 Shortness of breath
CPT/HCPCS: 36415; 78452; 93017; 96374; A9500; J2785

== ENCOUNTER → 2025-03-17 14:15 | Outpatient (BNVA) | payer OTHER, SELFPAY | PROVIDERS: PCP Nurse Practitioner; Visit Provider Podiatrist Foot & Ankle Surgery | DX: E11.8 Type 2 diabetes mellitus with unspecified complications (principal); B35.1 Tinea unguium; I73.9 Peripheral vascular disease, unspecified; G60.9 Hereditary and idiopathic neuropathy, unspecified | CPT/HCPCS: 11721 ==

== ENCOUNTER → 2025-03-23 08:18 | Outpatient (BNVA) | payer OTHER, SELFPAY | PROVIDERS: PCP Nurse Practitioner; Visit Provider Nurse Practitioner Family | DX: L57.8 Other skin changes due to chronic exposure to nonionizing radiation (principal); B35.3 Tinea pedis; S80.861A Insect bite (nonvenomous), right lower leg, initial encounter; S80.862A Insect bite (nonvenomous), left lower leg, initial encounter; L98.8 Other specified disorders of the skin and subcutaneous tissue; D18.01 Hemangioma of skin and subcutaneous tissue; L81.4 Other melanin hyperpigmentation; Z08 Encounter for follow-up examination after completed treatment for malignant neoplasm; Z86.006 Personal history of melanoma in-situ; L57.0 Actinic keratosis; X58.XXXA Exposure to other specified factors, initial encounter | CPT/HCPCS: 17004; 99213 ==